=== PATIENT | male | born 1995 | race American Indian/Alaskan Native ===

== ENCOUNTER 2017-12-23 07:52 | Emergency (ER) | payer OTHER ==
[2017-12-23 08:15] VITALS: BP 147/86
[2017-12-23] MEDS ORDERED: XYLOCAINE 1% MPF 5 mL INFILTRATI ONE (10:04)
[2017-12-23] MEDS ORDERED: ZITHROMAX PO ONE (10:04)
[2017-12-23] MEDS ORDERED: FLAGYL PO ONE (10:04)
[2017-12-23] MEDS ORDERED: ROCEPHIN IM ONE (10:04)
--- NOTE | 2017-12-23 10:12 | Emergency Department Report ---
ED Male HPI - General Chief complaint: Urogenital-Male Stated complaint: STD CHECK Time Seen by Provider: 12/23/17 09:41 Source: patient Mode of arrival: Ambulatory Limitations: No Limitations - History of Present Illness Initial comments: Patient is a 22-year-old Male who is complaining of discomfort when he urinates. Patient states started yesterday and is morning he had a white penile discharge. Patient denies any penile lesions not vomiting diarrhea fever. Patient has had new sexual partner approximately 2 weeks ago that was unprotected. - Related Data Allergies Allergy/AdvReac Type Severity Reaction Status Date / Time No Known Allergies Allergy Unverified 12/23/17 08:15 ED Review of Systems ROS: Stated complaint: STD CHECK Other details as noted in HPI Comment: All other systems reviewed and negative ED Past Medical Hx - Past Medical History Hx Asthma: Yes - Social History Smoking Status: Never Smoker Substance Use Type: Alcohol ED Physical Exam - General Limitations: No Limitations General appearance: alert, in no apparent distress - Head Head exam: Present: atraumatic, normocephalic - Eye Eye exam: Present: normal appearance - ENT ENT exam: Present: mucous membranes moist - Neck Neck exam: Present: normal inspection - Respiratory Respiratory exam: Present: normal lung sounds bilaterally. Absent: respiratory distress, wheezes, rales, rhonchi - Cardiovascular Cardiovascular Exam: Present: regular rate, normal rhythm. Absent: systolic murmur, diastolic murmur, rubs, gallop - GI/Abdominal GI/Abdominal exam: Present: soft, normal bowel sounds. Absent: distended, tenderness, guarding, rebound - Rectal Rectal exam: Present: deferred - Extremities Exam Extremities exam: Present: normal inspection - Back Exam Back exam: Present: normal inspection - Neurological Exam Neurological exam: Present: alert, oriented X3 - Psychiatric Psychiatric exam: Present: normal affect, normal mood - Skin Skin exam: Present: warm, dry, intact, normal color. Absent: rash ED Course Vital Signs 12/23/17 08:12 Temperature 98.0 F Pulse Rate 58 L Respiratory 15 Rate Blood Pressure 147/86 O2 Sat by Pulse 100 Oximetry ED Medical Decision Making - Medical Decision Making Patient is not medical emergency however does have insurance. Patient does not have a significant co-pay at this time. She'll be treated for gonorrhea Chlamydia and Trichomonas be discharged home. Critical care attestation.: If time is entered above; I have spent that time in minutes in the direct care of this critically ill patient, excluding procedure time. ED Disposition Clinical Impression: Urethritis Disposition: DC-01 TO HOME OR SELFCARE Is pt being admited?: No Does the pt Need Aspirin: No Condition: Stable Instructions: Nonspecific Urethritis in Men (ED) Referrals: PRIMARY CARE, [Primary Care Provider] - 3-5 Days Forms: STI Treatment and Prevention
== END 2017-12-23 10:38 | disposition home or self-care (01) ==
LOC: ED 07:52
DX: N34.2 Other urethritis (principal); J45.909 Unspecified asthma, uncomplicated
CPT/HCPCS: 96372; 99282; J0696